=== PATIENT | female | born 1995 | race Caucasian/White ===

== ENCOUNTER 2018-06-05 16:13 | Emergency (ER) | payer MEDICAID ==
[~2018-06-05] VITALS: Ht 157.5 cm; Wt 62.8 kg
[2018-06-05 16:43] VITALS: Ht 157.5 cm; Wt 62.8 kg
[2018-06-05 19:52] VITALS: BP 104/69
== END 2018-06-05 19:52 | disposition home or self-care (01) ==
LOC: ED 16:13
DX: L60.0 Ingrowing nail (principal)
CPT/HCPCS: J2001

== ENCOUNTER 2019-03-07 18:02 | Emergency (ER) | payer MEDICAID ==
[~2019-03-07] VITALS: Ht 157.5 cm; Wt 64.0 kg
[2019-03-07 18:21] VITALS: Ht 157.5 cm; Wt 64.0 kg
[2019-03-07 19:48] VITALS: BP 115/69
== END 2019-03-07 19:48 | disposition home or self-care (01) ==
LOC: ED 18:02
DX: B00.1 Herpesviral vesicular dermatitis (principal)

== ENCOUNTER 2019-11-23 13:49 | Emergency (ER) | payer OTHER ==
[~2019-11-23] VITALS: Ht 157.5 cm; Wt 67.6 kg
[2019-11-23 14:00] VITALS: Ht 157.5 cm; Wt 67.6 kg
[2019-11-23 16:23] VITALS: BP 116/72
== END 2019-11-23 16:26 | disposition home or self-care (01) ==
LOC: ED 13:49
DX: O26.891 Other specified pregnancy related conditions, first trimester (principal); L60.0 Ingrowing nail
CPT/HCPCS: J2001

== ENCOUNTER 2019-11-25 11:50 | Emergency (ER) | payer OTHER ==
[~2019-11-25] VITALS: Ht 157.5 cm; Wt 64.4 kg
[2019-11-25 12:05] VITALS: BP 114/56; Ht 157.5 cm; Wt 64.4 kg
== END 2019-11-25 13:32 | disposition home or self-care (01) ==
LOC: ED 11:50
DX: L60.0 Ingrowing nail (principal)
CPT/HCPCS: J2001

== ENCOUNTER 2019-12-11 14:35 | Emergency (ER) | payer OTHER ==
[~2019-12-11] VITALS: Ht 165.1 cm; Wt 64.0 kg
[2019-12-11 14:52] VITALS: Ht 165.1 cm; Wt 64.0 kg
[2019-12-11 15:28] LABS: BASOPHIL % 1.4 % (0-2); PLATELET COUNT 351 x10^3mcL (130-400); RED CELL DISTRIBUTION WIDTH 13.7 % (11.5-14.5)
[2019-12-11 15:38] LABS: CALCIUM 8.9 mg/dL (8.5-10.1); CARBON DIOXIDE 23.7 mmol/L (21-32); CHLORIDE SERUM 100 mmol/L (98-107); CREATININE SERUM 0.6 mg/dL (0.6-1.0); GFR1 > 60 mL/min; GLUCOSE SERUM 102 mg/dL (74-106); POTASSIUM SERUM 3.5 mmol/L (3.5-5.1); SODIUM SERUM 135 mmol/L (136-145)
[2019-12-11 15:45] LABS: ALBUMIN 3.8 g/dL (3.4-5.0); ALKALINE PHOSPHATASE 49 U/L (46-116); ALT/SGPT 39 U/L (14-59); AST/SGOT 28 U/L (15-37); BILIRUBIN TOTAL 0.3 mg/dL (0.20-1.00); TOTAL PROTEIN, SERUM 7.4 g/dL (6.4-8.2)
[2019-12-11 19:02] VITALS: BP 115/60
== END 2019-12-11 19:02 | disposition home or self-care (01) ==
LOC: ED 14:35
PROVIDERS: Emergency Medicine
DX: O21.0 Mild hyperemesis gravidarum (principal); O26.891 Other specified pregnancy related conditions, first trimester; R55 Syncope and collapse; Z3A.01 Less than 8 weeks gestation of pregnancy
CPT/HCPCS: J7042